=== PATIENT | female | born 1965 | race Caucasian/White ===

== ENCOUNTER 2016-12-31 02:58 | Emergency (ER) | payer OTHER ==
[2016-12-31] MEDS ORDERED: PHENAZOPYRIDINE HCL 200 MG TABLET PO ONE ×2 (03:18→03:21)
[2016-12-31] MEDS ORDERED: LEVOFLOXACIN 250 MG TABLET PO ONE (04:04)
[2016-12-31] MEDS ORDERED: PHARMACY KEY 1 EACH EACH MC ONE (04:05)
[2016-12-31] MEDS ORDERED: LEVOFLOXACIN 500 MG TABLET PO ONE (04:09)
[2016-12-31] MEDS ORDERED: KETOROLAC TROMETHAMINE 60 MG/2 ML VIAL IM ONE (04:09)
[2016-12-31] MEDS ORDERED: KETOROLAC TROMETHAMINE 60 MG/2 ML VIAL ONE (04:09)
[2016-12-31] MEDS ORDERED: HYDROcodone /APAP 5/325 1 EACH TABLET PO ONE (04:10)
--- NOTE | 2016-12-31 04:13 | ED Physician Documentation ---
Female Urogenital Problems - HISTORIAN Historian: patient - HPI Stated Complaint: Painful urination/LBP Chief Complaint: Female Urogenital Problems Onset: days ago (7) Location of Pain: flank pain, other (groin pain) Further Comments: yes (51 yo female presents with dysuria, urinary urgency, urinary frequency, and pain from genital region around to left flank for 1 week. Originally thought it was due to her arthritis in her hip. Has [place] at home but has not taken any for this pain, despite being in 10/10 pain. No fever /chills. No prior history of nephrolithiasis.) - Associated Symptoms Urinary Symptoms: frequent urination, discomfort w/ urination, burning w/ urination, urgency w/ urination, pain w/ urination - ROS CONST: none - PAST HX Past History: other (osteoarthritis) Allergies/Adverse Reactions: Allergies Allergy/AdvReac Type Severity Reaction Status Date / Time cephalexin monohydrate Allergy Verified 12/31/16 03:33 [From Keflex] Penicillins Allergy Verified 12/31/16 03:33 Home Medications: Ambulatory Orders Medication Instructions Recorded Hydrocodone/Acetaminophen 1 each PO Q6 PRN 02/04/16 [Hydrocodon-Acetaminophen 5-325] Ipratropium/Albuterol Sulfate 3 ml IH PRN PRN 12/31/16 [Duoneb] Levofloxacin [Levaquin] 750 mg PO DAILY #6 tablet 12/31/16 Phenazopyridine HCl [Pyridium] 200 mg PO TID #6 tablet 12/31/16 Tramadol HCl [Ultram] 50 mg PO PRN PRN 12/31/16 - SOCIAL HX Smoking History: non-smoker - FAMILY HX Family History: none - VITAL SIGNS Vital Signs: Vital Signs Temp Pulse Resp BP Pulse Ox 97.5 F L 83 24 127/69 100 12/31/16 02:58 12/31/16 02:58 12/31/16 02:58 12/31/16 02:58 12/31/16 02:58 - REVIEWED ASSESSMENTS Nursing Assessment Reviewed: Yes Vitals Reviewed: Yes Progress - Progress Progress: Pt's symptoms clinically indicate UTI/early pyelonephritis; no prior history of nephrolithiasis. Pt is Afebrile, vitals WNL, meets criteria for outpatient antibiotic therapy; will start Levaquin 750mg daily. Pt says she has an appointment with her PCP in 2 days for good follow up. ED Results Lab/Radiology - Radiology Radiology Impressions: CT of the abdomen and pelvis without contrast Clinical history: Low back pain. Hematuria. Pain began on 12/27/2016. Technique: CT of the abdomen and pelvis is performed without oral or intravenous administration of contrast. Sagittal and coronal reconstructions are performed by the technologist. Findings: The visualized lung bases are clear. The liver and spleen demonstrate normal attenuation without focal defect. Small gallstone is present in the gallbladder. There is no pancreatic abnormality. Right adrenal gland is unremarkable. Left adrenal gland is enlarged but hypodense consistent with lipid rich adenoma. Adrenal measures 2.4 cm in size. Right kidney and collecting system are unremarkable. There is left hydronephrosis and hydroureter with minimal lisbeth-ureteral stranding. There is no definite ureteral calculus. The findings suggest recently passed stone or pyelonephritis. Vascular calcification is present in the abdominal aorta without evidence of aneurysm. The appendix is visualized and is within normal limits. Impression: 1. Mild left hydronephrosis and hydroureter with left lisbeth-ureteral stranding consistent with pyelonephritis or recently passed stone. 2. Vascular calcification. 3. Left adrenal adenoma. 4. Cholelithiasis. Electronically signed on Dec 31, 2016 3:48:08 AM CEO & BOARD DIRECTOR by: Blayne Ellis - Orders Orders: ED Orders Category Date Time Status CT ABD & PELVIS W/O CON Stat Exams 12/31/16 Taken UA W/MICRO IF INDICATED Routine Lab 12/31/16 04:03 Ordered HYDROcodone /APAP 5/325 [Day[place] 5/325] Med 12/31/16 04:10 Once 2 each PO TAKE HOME ONE Ketorolac Tromethamine [Toradol] Med 12/31/16 04:09 Discontinued 60 mg .ROUTE .STK-MED ONE Ketorolac Tromethamine [Toradol] Med 12/31/16 04:09 Once 60 mg IM NOW ONE Levofloxacin [Levaquin] Med 12/31/16 04:09 Discontinued 1,000 mg PO .STK-MED ONE Levofloxacin [Levaquin] Med 12/31/16 04:04 Discontinued 750 mg PO NOW ONE [facility] 12/31/16 04:05 Discontinued 1 each MC .STK-MED ONE Phenazopyridine HCl [Pyridium] Med 12/31/16 03:21 Discontinued 200 mg PO .STK-MED ONE Phenazopyridine HCl [Pyridium] Med 12/31/16 03:18 Discontinued 200 mg PO NOW ONE Female Urogenital Problems - EXAM General Appearance: alert, mild distress EENT: pharynx normal, LES, TM's nml Neck: nml inspection Respiratory: no resp. distress, breath sounds nml Abdomen: tenderness (suprapubic tenderness, soft) Back: CVA tenderness (Left) Skin: color nml, no rash Neuro: oriented X3 Discharge Clincal Impression: UTI (urinary tract infection) Qualifiers: Urinary tract infection type: acute pyelonephritis Qualified Code(s): N10 - Acute pyelonephritis Additional Instructions: Take Levaquin 750mg daily for 7 days Take [place] as prescribed Take Pyridium 200mg three times daily for 2 days; it will turn your color a highlighter bright color Follow up with PCP in 2 days as scheduled Home Medications: Ambulatory Orders Hydrocodone/Acetaminophen [Hydrocodon-Acetaminophen 5-325] 1 each PO Q6 PRN Ipratropium/Albuterol Sulfate [Duoneb] 3 ml IH PRN PRN 12/31/16 Levofloxacin [Levaquin] 750 mg PO DAILY #6 tablet 12/31/16 Phenazopyridine HCl [Pyridium] 200 mg PO TID #6 tablet 12/31/16 Tramadol HCl [Ultram] 50 mg PO PRN PRN 12/31/16 Condition: Good Disposition: 01 HOME, SELF-CARE Decision to Admit: NO Decision Time: 04:16
[2016-12-31 04:43] VITALS: BP 128/62
[2016-12-31 05:56] LABS: APPEARANCE,URINE CLOUDY (CLEAR); COLOR,URINE YELLOW (YELLOW); OCCULT BLOOD,URINE 3+ (NEGATIVE); UROBILINOGEN URINE 0.2 Eu (0.2-1.0)
--- NOTE | 2016-12-31 06:45 | Diagnostic Imaging Report ---
JUDY CAVANAUGH~ [facility] [address] [facility] [address] [place], [place]. [address] ~ ~ ~ ~ Report Submission Date: Dec 31, 2016 3:48:08 AM REAL ESTATE SALES MANAGER Patient ~ Study Name: ARNULFO RAMOS ~ Date: Dec 31, 2016 3:33:58 AM REAL ESTATE SALES MANAGER ~ Modality Type: CT\SR Gender: F ~ Description: CT ABD & PELVIS W/O CO : 65 ~ Institution: [facility] Physician: JUDY CAVANAUGH ~ ~ ~ ~ CT of the abdomen and pelvis without contrast Clinical history: ~Low back pain. ~Hematuria. ~Pain began on 12/27/2016. Technique: ~CT of the abdomen and pelvis is performed without oral or intravenous administration of contrast. ~Sagittal and coronal reconstructions are performed by the technologist. Findings: ~The visualized lung bases are clear. ~The liver and spleen demonstrate normal attenuation without focal defect. ~Small gallstone is present in the gallbladder. ~There is no pancreatic abnormality. ~Right adrenal gland is unremarkable. ~Left adrenal gland is enlarged but hypodense consistent with lipid rich adenoma. ~Adrenal measures 2.4 cm in size. ~Right kidney and collecting system are unremarkable. ~There is left hydronephrosis and hydroureter with minimal lisbeth-ureteral stranding. ~There is no definite ureteral calculus. ~The findings suggest recently passed stone or pyelonephritis. ~Vascular calcification is present in the abdominal aorta without evidence of aneurysm. ~The appendix is visualized and is within normal limits. Impression: 1. ~Mild left hydronephrosis and hydroureter with left lisbeth-ureteral stranding consistent with pyelonephritis or recently passed stone. 2. ~Vascular calcification. 3. ~Left adrenal adenoma. 4. ~Cholelithiasis. ~ Electronically signed on Dec 31, 2016 3:48:08 AM REAL ESTATE SALES MANAGER by: Blayne DELEON
== END 2016-12-31 04:25 | disposition home or self-care (01) ==
LOC: ED 02:58
DX: N39.0 Urinary tract infection, site not specified (principal)
CPT/HCPCS: 74176; 81002; 87086; 87186; J1885; 96372; 99283; 99284

== ENCOUNTER 2017-01-03 23:54 | Emergency (ER) | payer OTHER ==
[2017-01-04] MEDS ORDERED: 0.9 % SODIUM CHLORIDE 1,000 ML IV ONE (00:08)
[2017-01-04] MEDS ORDERED: ONDANSETRON HCL/PF 4 MG/ 2ML VIAL IVP ONE (00:08)
[2017-01-04] MEDS ORDERED: KETOROLAC TROMETHAMINE 30 MG/1ML VIAL IVP ONE (00:08)
[2017-01-04 00:50] LABS: BASOPHILS % 0.4 (0.0-1.5); EOSINOPHILS % 2.6 % (0.0-6.8); LYMPHOCYTES # 0.5 # k/uL (0.6-4.0); MEAN CORPUSCULAR HEMOGLOBIN 31.5 pg (28.0-34.0); MONOCYTES # 0.4 # k/uL (0.0-0.9); MONOCYTES % 6.2 % (0.0-11.0); NEUTROPHILS # 4.9 # k/uL (1.4-7.7)
[2017-01-04 01:04] LABS: eGFR (African) > 60; eGFR (Non-African) > 60
--- NOTE | 2017-01-04 01:30 | ED Physician Documentation ---
General Adult - HISTORIAN Historian: patient - HPI Stated Complaint: fever, left flank pain, headache Chief Complaint: General Adult Further Comments: yes (51 year old female patient presents with complaint of fever, nausea and vomiting with taking levaquin, Left shoulder pain and generalized abdominal pain. Patient was seen on 12/31/13 in ER and diagnosis with UTI and passed renal calculi. Patient states she started vomiting on 01/01 after taking the levaquin po. Patient c/o left lateral neck and left shoulder pain. States she fell Thursday night.) - ROS CONST: recent illness EYES/ENT: none CVS/RESP: cough. denies: chest pain, shortness of breath GI/: abdominal pain (improved, LL quad), vomiting, nausea. denies: problems urinating MS/SKIN/LYMPH: neck pain, joint pain (left shoulder) - PAST HX Past History: other (OA) Allergies/Adverse Reactions: Allergies Allergy/AdvReac Type Severity Reaction Status Date / Time cephalexin monohydrate Allergy Verified 01/04/17 00:26 [From Keflex] Penicillins Allergy Verified 01/04/17 00:26 Home Medications: Ambulatory Orders Medication Instructions Recorded Hydrocodone/Acetaminophen 1 each PO Q6 PRN 02/04/16 [Hydrocodon-Acetaminophen 5-325] Levofloxacin [Levaquin] 750 mg PO DAILY #6 tablet 12/31/16 - SOCIAL HX Smoking History: cigarettes (down to 2/day, on chantix) - FAMILY HX Family History: No - VITAL SIGNS Vital Signs: Vital Signs Temp Pulse Resp BP Pulse Ox 101.7 F H 106 H 18 108/53 94 01/04/17 00:05 01/04/17 00:05 01/04/17 00:05 01/04/17 00:05 01/04/17 00:05 - REVIEWED ASSESSMENTS Nursing Assessment Reviewed: Yes Vitals Reviewed: Yes Progress - Progress Progress: Patient continues to c/o neck pain. ED Results Lab/Radiology - Lab Results Lab Results: Lab Results 01/04/17 01/04/17 00:40 00:40 WBC 6.00 K/ul K/ul (4.00-12.00) RBC 4.19 M/ul M/ul (3.90-5.20) Hgb 13.2 g/dL g/dL (12.0-16.0) Hct 38.2 % % (34.5-46.5) MCV 91.1 fl fl (80.0-100.0) MCH 31.5 pg pg (28.0-34.0) MCHC 34.6 g/dL g/dL (30.0-36.0) RDW 12.6 % % (11.3-14.3) Plt Count 216 K/mm3 K/mm3 (130-400) Neut % (Auto) 82.0 % H % (39.0-79.0) Lymph % (Auto) 7.7 % L % (16.0-50.0) Warrick % (Auto) 6.2 % % (0.0-11.0) Eos % (Auto) 2.6 % % (0.0-6.8) Baso % (Auto) 0.4 (0.0-1.5) Neut # 4.9 # k/uL # k/uL (1.4-7.7) Lymph # 0.5 # k/uL L # k/uL (0.6-4.0) Warrick # 0.4 # k/uL # k/uL (0.0-0.9) Eos # 0.2 # k/uL # k/uL (0.0-0.6) Baso # 0.0 # k/uL # k/uL (0.0-0.5) Reactive Lymphs % 1.2 % % (0.0-5.0) Reactive Lymphs # 0.1 # k/uL # k/uL (0.0-0.8) Sodium 138 mmol/L mmol/L (136-145) Potassium 3.8 mmol/L mmol/L (3.5-5.0) Chloride 100 mmol/L mmol/L (98-110) Carbon Dioxide 26 mmol/L mmol/L (20-32) BUN 12 mg/dL mg/dL (10-26) Creatinine 0.6 mg/dL mg/dL (0.4-1.5) Est GFR ( Amer) > 60 (60 - ) Est GFR (Non-Af Amer) > 60 (60 - ) Glucose 155 mg/dL H mg/dL (70-99) Calcium 9.5 mg/dL mg/dL (8.5-10.5) Total Bilirubin 0.3 mg/dL mg/dL (0.2-1.2) AST 30 U/L U/L (0-41) ALT 31 U/L U/L (0-45) Alkaline Phosphatase 100 U/L U/L (46-116) Total Protein 6.6 g/dL g/dL (6.0-8.5) Albumin 4.4 g/dL g/dL (3.0-5.5) - Radiology Radiology Impressions: Left shoulder left shoulder - three views Clinical history: Fall last week. Pain and decreased range of motion. Findings: Examination left shoulder multiple views demonstrates degenerative changes with slight narrowing of the acromioclavicular joint. The glenohumeral relationship is anatomic. There is no evident fracture and no lytic or blastic lesion. Impression: 1. Mild degenerative changes in the acromioclavicular joint. Chest - two views Clinical history: Chest tightness and productive cough. Findings: Examination of the chest in PA and lateral views with comparison to examination of 11/21/2016 demonstrates the lungs to be clear. The cardiovascular and mediastinal silhouettes are stable. The bony thorax is intact. Impression: 1. No significant change. 2. No active disease. Electronically signed on Jan 04, 2017 2:01:25 AM OUTSIDE SALESMAN by: Blayne Ellis - Orders Orders: ED Orders Category Date Time Status Place Saline Lock/IV NOW Care 01/04/17 00:08 Active CHEST P.A.&LAT 2 VIEWS [RAD] Stat Exams 01/04/[address] ABD W & W/O CONTRAST Stat Exams 01/04/17 Stop Req SHOULDER 2 VIEWS OR MORE [RAD] Stat Exams 01/04/17 Ordered CBC/PLATELET/DIFF Stat Lab 01/04/17 00:40 Completed CMP Stat Lab 01/04/17 00:40 Completed INFLUENZA A&B Stat Lab 01/04/17 Uncollected UA W/MICRO IF INDICATED Stat Lab 01/04/17 00:08 Ordered 0.9 % Sodium Chloride [Normal Saline] 1,000 ml Med 01/04/17 00:08 Discontinued IV NOW Ketorolac Tromethamine [Toradol] Med 01/04/17 00:08 Discontinued 30 mg IVP NOW ONE Ondansetron HCl/Pf [Zofran 4 mg/2 ml] Med 01/04/17 00:08 Discontinued 4 mg IVP NOW ONE General Adult Physical Exam - PHYSICAL EXAM GENERAL APPEARANCE: moderate distress EENT: eye inspection normal, ENT inspection normal, pharynx normal, no signs of dehydration, LES, no nystagmus, TM's nml RESPIRATORY: no resp distress, chest non-tender, other (cough) CVS: reg rate & rhythm, heart sounds normal, equal pulses, no murmur, no gallop , PMI nml, no JVD, no friction rub, 24 ABDOMEN: soft, no organomegaly, normal bowel sounds, no abdominal bruit, no distension, tenderness (LLQ, ) BACK: normal inspection, no CVA tenderness SKIN: normal color, warm/dry, NR, INT, PAL, DR EXTREMITIES: non-tender, no evidence of injury, no edema, tenderness (left shoulder, decreased ROM - unable to abduct due to pain, pain with forward flexion decreased and extension) NEURO: oriented X3, CN's nml as tested, motor nml, sensation nml, mood/affect nml Discharge Clincal Impression: Cervical strain, acute Qualifiers: Encounter type: initial encounter Qualified Code(s): S16.1XXA - Strain of muscle, fascia and tendon at neck level, initial encounter Shoulder pain, acute Qualifiers: Laterality: left Qualified Code(s): M25.512 - Pain in left shoulder Nausea & vomiting Qualifiers: Vomiting type: unspecified Vomiting Intractability: non-intractable Qualified Code(s): R11.2 - Nausea with vomiting, unspecified Referrals: Yudy Disla, PRN [Primary Care Provider] - 2 Days Additional Instructions: Stop the levaquin supervisor mirror fabrication your prescriptions and start them tomorrow. Follow up with your doctor in 2-3 days Clear liquid and advance diet as tolerated. Home Medications: Ambulatory Orders Hydrocodone/Acetaminophen [Hydrocodon-Acetaminophen 5-325] 1 each PO Q6 PRN Levofloxacin [Levaquin] 750 mg PO DAILY #6 tablet 12/31/16 Condition: Stable Disposition: 01 HOME, SELF-CARE Decision to Admit: NO Decision Time: 02:14
[2017-01-04] MEDS ORDERED: DIAZEPAM 5 MG/ML DISP.SYRIN IM ONE (01:42)
[2017-01-04 06:45] VITALS: BP 93/47
[2017-01-04 07:06] LABS: APPEARANCE,URINE CLEAR (CLEAR); COLOR,URINE YELLOW (YELLOW); OCCULT BLOOD,URINE 2+ (NEGATIVE); UROBILINOGEN URINE 0.2 Eu (0.2-1.0)
--- NOTE | 2017-01-04 07:49 | Diagnostic Imaging Report ---
RONNIE LEE (TYRE FINISHER AND EXAMINER) - ER~ [facility] [address] [address] ~ ~ ~ ~ Report Submission Date: Jan 04, 2017 2:01:25 AM DISCOVERY MANAGER Patient ~ Study Name: ARNULFO RAMOS ~ Date: Jan 04, 2017 1:41:26 AM DISCOVERY MANAGER ~ Modality Type: CR Gender: F ~ Description: CHEST : 65 ~ Institution: [facility] Physician: RONNIE LEE (TYRE FINISHER AND EXAMINER) - ER ~ ~ ~ ~ Chest - two views Clinical history: ~Chest tightness and productive cough. Findings: ~Examination of the chest in PA and lateral views with comparison to examination of 11/21/2016 demonstrates the lungs to be clear. ~The cardiovascular and mediastinal silhouettes are stable. ~The bony thorax is intact. Impression: 1. ~No significant change. 2. ~No active disease. ~ Electronically signed on Jan 04, 2017 2:01:25 AM DISCOVERY MANAGER by: Blayne DELEON
--- NOTE | 2017-01-04 07:52 | Diagnostic Imaging Report ---
RONNIE LEE (GREGORIA) - ER~ [facility] [address] [address] ~ ~ ~ ~ Report Submission Date: Jan 04, 2017 2:08:16 AM SENIOR DATA QUALITY ANALYST Patient ~ Study Name: ARNULFO RAMOS ~ Date: Jan 04, 2017 1:49:18 AM SENIOR DATA QUALITY ANALYST ~ Modality Type: CR Gender: F ~ Description: SHOULDER : 65 ~ Institution: [facility] Physician: RONNIE LEE) - ER ~ ~ ~ ~ Left shoulder left shoulder - three views Clinical history: ~Fall last week. ~Pain and decreased range of motion. Findings: ~Examination left shoulder multiple views demonstrates degenerative changes with slight narrowing of the acromioclavicular joint. ~The glenohumeral relationship is anatomic. ~There is no evident fracture and no lytic or blastic lesion. Impression: ~ 1. ~Mild degenerative changes in the acromioclavicular joint. ~ Electronically signed on Jan 04, 2017 2:08:16 AM SENIOR DATA QUALITY ANALYST by: Blayne EDLEON
== END 2017-01-04 02:20 | disposition home or self-care (01) ==
LOC: ED 23:54
DX: S16.1XXA Strain of muscle, fascia and tendon at neck level, initial encounter (principal); M25.512 Pain in left shoulder; R11.2 Nausea with vomiting, unspecified
CPT/HCPCS: 71020; 73030; 80053; 81002; 85025; 87400; J1885; J2405; J3360; J7030; 96361; 96374; 96375; 99283; 99284; S1016

== ENCOUNTER 2017-03-23 22:09 | Emergency (ER) | payer OTHER ==
[2017-03-23 22:27] VITALS: BP 123/69
--- NOTE | 2017-03-23 22:43 | ED Physician Documentation ---
Skin Rash - HISTORIAN Historian: patient, spouse - HPI Stated Complaint: Rt eye orbital tissue swelling/redness and swelling to Rt shoulder Chief Complaint: Skin Rash Additional Information: itchy rash around R eye, with edema, painful erythema skin over R shoulder, after poking and squeezing a pimple last night. Onset: days ago Timing: still present Duration: worse Location: facial, RUE Quality: itchy, painful Identified Cause?: No Context: Medication Exposure: none Context: Food Exposure: none Further Comments: no - ROS CONST: none CVS/RESP: none EYES/ENT: eye itching GI/: none MS/SKIN/LYMPH: none NEURO/PSYCH: none - PAST HX Past History: none Other History: none Surgeries/Procedures: No Allergies/Adverse Reactions: Allergies Allergy/AdvReac Type Severity Reaction Status Date / Time cephalexin monohydrate Allergy Verified 03/23/17 22:27 [From Keflex] Penicillins Allergy Verified 03/23/17 22:27 Home Medications: Ambulatory Orders Medication Instructions Recorded Hydrocodone/Acetaminophen 1 each PO Q6 PRN 02/04/16 [Hydrocodon-Acetaminophen 5-325] Tramadol HCl [Ultram] 50 mg PO PRN PRN 03/23/17 - SOCIAL HX Smoking History: cigarettes Alcohol Use: none Drug Use: none - FAMILY HX Family History: none - VITAL SIGNS Vital Signs: Vital Signs Temp Pulse Resp BP Pulse Ox 80 16 123/69 97 03/23/17 22:09 03/23/17 22:09 03/23/17 22:09 03/23/17 22:09 - REVIEWED ASSESSMENTS Nursing Assessment Reviewed: Yes Vitals Reviewed: Yes ED Results Lab/Radiology - Orders Orders: ED Orders Category Date Time Status Clindamycin HCl [Cleocin] Med 03/23/17 22:40 Once 300 mg PO NOW ONE methylPREDNISolone SOD SUCC [Solu-MEDROL] Med 03/23/17 22:40 Once 125 mg IM NOW ONE Skin Rash Physical Exam - EXAM General Appearance: no acute distress Skin: warm,dry, other (R periorbital edema and redness, with pruritis. R shoulder area skin erythema 5cm with central ulcer, ttp) Location: face Character: urticarial Symptoms: warmth, tenderness Extremities: non-tender EENT: eyes nml inspection Neck: trachea midline Respiratory: no resp distress CVS: reg. rate & rhythm Abdomen: non-tender Neuro/Psych: oriented x3, mood/affect nml Discharge Clincal Impression: Cellulitis of shoulder Allergic conjunctivitis Qualifiers: Laterality: right Qualified Code(s): H10.11 - Acute atopic conjunctivitis, right eye Home Medications: Ambulatory Orders Hydrocodone/Acetaminophen [Hydrocodon-Acetaminophen 5-325] 1 each PO Q6 PRN Tramadol HCl [Ultram] 50 mg PO PRN PRN 03/23/17 Condition: Good Disposition: 01 HOME, SELF-CARE Decision to Admit: NO Date of Decison to Admit: 03/23/17 Decision Time: 22:51
[2017-03-23] MEDS: CLINDAMYCIN HCL 150 MG CAPSULE PO ONE (22:58)
[2017-03-23] MEDS: methylPREDNISolone SOD SUCC 125 MG/2 ML VIAL IM ONE (22:59)
== END 2017-03-23 23:00 | disposition home or self-care (01) ==
LOC: ED 22:09
DX: H10.11 Acute atopic conjunctivitis, right eye (principal); L03.113 Cellulitis of right upper limb; F17.210 Nicotine dependence, cigarettes, uncomplicated
CPT/HCPCS: A9270; J2930; 96372; 99283

== ENCOUNTER 2017-08-03 11:20 | Outpatient (CLI) | payer OTHER ==
--- NOTE | 2017-08-03 14:57 | Diagnostic Imaging Report ---
MICHELLE KINSEY (DATA SCIENCE AND IOT MANAGER) - OP [facility] [address] [facility] [address] [address] Report Submission Date: Aug 03, 2017 11:52:21 AM CDT Patient Study Name: ARNULFO RAMOS Date: Aug 03, 2017 11:23:11 AM CDT Modality Type: CR Gender: F Description: SHOULDER : 65 Institution: [facility] Physician: MICHELLE KINSEY (DATA SCIENCE AND IOT MANAGER) - OP Examination: Plain film shoulder History: Fall Comparison exams: None provided Findings: 3 views of the shoulder demonstrate normal cortical margins. No evidence for fracture or dislocation. Early acromioclavicular joint degenerative changes. Mild widening of the humeral head/glenoid/acromial space. Impression: No acute osseous process. Mild widening of the joint space: could represent joint effusion. Electronically signed on Aug 03, 2017 11:52:21 AM CDT by: Aleks DELEON
--- NOTE | 2017-08-03 14:58 | Diagnostic Imaging Report ---
MICHELLE KINSEY (WARP STARTER) - OP [facility] [address] [facility] [address] [address] Report Submission Date: Aug 03, 2017 11:53:08 AM CDT Patient Study Name: ARNULFO RAMOS Date: Aug 03, 2017 11:27:37 AM CDT Modality Type: CR Gender: F Description: UPPER EXTREMITY : 65 Institution: [facility] Physician: MICHELLE KINSEY (WARP STARTER) - OP Examination: Plain film humerus History: Fall Comparison exams: None provided Findings: 2 views of the humerus demonstrate normal cortical margins. No fracture. No dislocation. Impression: No acute osseous abnormality. Electronically signed on Aug 03, 2017 11:53:08 AM CDT by: Aleks DELEON
--- NOTE | 2017-08-03 14:58 | Diagnostic Imaging Report ---
MICHELLE KINSEY (PRESIDENT AND CMO) - OP [facility] [address] [facility] [address] [address] Report Submission Date: Aug 03, 2017 11:49:50 AM CDT Patient Study Name: ARNULFO RAMOS Date: Aug 03, 2017 11:31:25 AM CDT Modality Type: CR Gender: F Description: UPPER EXTREMITY : 65 Institution: [facility] Physician: MICHELLE KINSEY (PRESIDENT AND CMO) - OP Examination: Plain film elbow History: Fall Comparison exams: None provided Findings: 2 views of the elbow demonstrate normal cortical margins. No fracture. No dislocation. Radial head is within normal limits. No joint effusion Impression: No acute osseous abnormality. Electronically signed on Aug 03, 2017 11:49:50 AM CDT by: Aleks DELEON
== END 2017-08-03 11:21 ==
LOC: RAD 11:20
PROVIDERS: ATTEND Nurse Practitioner Family
DX: M25.529 Pain in unspecified elbow (principal); M25.519 Pain in unspecified shoulder; M79.603 Pain in arm, unspecified; W19.XXXA Unspecified fall, initial encounter; Y93.9 Activity, unspecified; Y99.9 Unspecified external cause status
CPT/HCPCS: 73030; 73060; 73070

== ENCOUNTER 2018-03-27 15:25 | Emergency (ER) | payer OTHER ==
[2018-03-27 15:44] VITALS: BP 103/58
--- NOTE | 2018-03-27 16:05 | ED Physician Documentation ---
General Adult - HISTORIAN Historian: patient - HPI Stated Complaint: cough Chief Complaint: General Adult Onset: days ago (4) Timing: still present Severity: moderate Further Comments: yes (Pt is a 52 yo female with cough x 4 days. Pt was using bug spray and got a big dose of the spray in her face and airway when the wind changed. Pt has had cough since then. Pt has hx asthma, but had not been having problems with it in recent years. Pt is a smoker.) - ROS CONST: no problems EYES/ENT: sore throat ("from coughing") CVS/RESP: cough GI/: none MS/SKIN/LYMPH: none - PAST HX Past History: asthma, other (DM) Surgeries/Procedures: BTL, hysterectomy, other (appendectomy, tonsillectomy, ortho surg.) Allergies/Adverse Reactions: Allergies Allergy/AdvReac Type Severity Reaction Status Date / Time cephalexin monohydrate Allergy Verified 03/27/18 15:37 [From Keflex] Penicillins Allergy Verified 03/27/18 15:37 Home Medications: Ambulatory Orders Medication Instructions Recorded Metformin HCl [Glucophage] [place] [id number] 03/27/18 - SOCIAL HX Smoking History: cigarettes - FAMILY HX Family History: No - VITAL SIGNS Vital Signs: Vital Signs Temp Pulse Resp BP Pulse Ox 98.6 F 80 18 103/58 96 03/27/18 15:39 03/27/18 15:39 03/27/18 15:39 03/27/18 15:39 03/27/18 15:39 - REVIEWED ASSESSMENTS Nursing Assessment Reviewed: Yes Vitals Reviewed: Yes Progress - Progress Progress: Pulmicort HFN in ER Rx Prednisone 50 mg. Take one daily for 5 days. Rx Albuterol (90 mcg/spray) MDI. Take 2 puffs every 4 to 6 hrs as needed. Rx Z-waqas. Use as directed on package. Pt has Tessalon Dalila at home. - EKG/XRAY/CT XRAY: chest (Chronic interstitial changes. No acute pulmonary process.) ED Results Lab/Radiology - Orders Orders: ED Orders Category Date Time Status CHEST 2VIEW [RAD] Stat Exams 03/27/18 Ordered General Adult Physical Exam - PHYSICAL EXAM GENERAL APPEARANCE: mild distress EENT: pharynx normal NECK: normal inspection, supple RESPIRATORY: no resp distress, chest non-tender, breath sounds normal CVS: reg rate & rhythm, heart sounds normal ABDOMEN: soft, no organomegaly, normal bowel sounds BACK: normal inspection SKIN: warm/dry, normal color EXTREMITIES: non-tender, normal range of motion, no evidence of injury, no edema NEURO: oriented X3, motor nml, sensation nml Discharge Clincal Impression: Cough Referrals: Yudy Disla PRN [Primary Care Provider] - Condition: Good Disposition: 01 HOME, SELF-CARE Decision to Admit: NO Decision Time: 16:35
[2018-03-27] MEDS ORDERED: BUDESONIDE 0.5MG/2ML AMPUL.NEB NEB ONE (16:06)
--- NOTE | 2018-03-27 16:06 | Diagnostic Imaging Report ---
ADAN CANALES [facility] [address] [facility] [address] [place] [address]. [id number] Report Submission Date: March 27, 2018 4:02:34 PM CDT Patient Study Name: ARNULFO RAMOS Date: March 27, 2018 3:46:02 PM CDT Modality Type: DX Gender: F Description: CHEST : 65 Institution: [facility] Physician: ADAN CANALES Examination: PA and lateral chest. History: Evaluate lung perez. coughing and wheezing x 5 days (Hx) Comparison exam: None provided. Findings: PA lateral chest demonstrate a normal cardiac and mediastinal silhouette. Chronic interstitial changes. No focal infiltrate. No blunting of the costophrenic margins. Right lung base granuloma. Osseous structures are appropriate for age. Impression: Chronic interstitial changes. No acute pulmonary process. Electronically signed on March 27, 2018 4:02:34 PM CDT by: Aleks DELEON
[2018-03-27] MEDS ORDERED: BUDESONIDE 0.5MG/2ML AMPUL.NEB NEB SCH (17:00)
== END 2018-03-27 16:29 | disposition home or self-care (01) ==
LOC: ED 15:25
DX: R05 Cough (principal)
CPT/HCPCS: 71046; 94640; 99283

== ENCOUNTER 2019-02-28 12:16 | Outpatient (CLI) | payer OTHER ==
[2018-04-03 11:24] VITALS: BP 110/62
--- NOTE | 2019-02-28 13:34 | Diagnostic Imaging Report ---
BOZENA BURGOS [facility] [address] [facility] [address] [place] [address]. [id number] Report Submission Date: Feb 28, 2019 1:17:11 PM CDT Patient Study Name: ARNULFO RAMOS Date: Feb 28, 2019 12:49:12 PM CDT Modality Type: DX Gender: F Description: ANKLE 3 VIEWS OR MORE : 65 Institution: [facility] Physician: BOZENA BURGOS EXAMINATION: ANKLE 3 VIEWS OR MORE HISTORY: CHRONIC LEFT FOOT AND ANKLE PAIN. (Hx) COMPARISON: None FINDINGS: The osseous structures are intact and well aligned without acute fracture or dislocation. The joint spaces are preserved. Bone density is normal. No soft tissue swelling is seen. IMPRESSION: No acute fracture, dislocation, or significant degenerative change identified. Electronically signed on Feb 28, 2019 1:17:11 PM CDT by: Marcell DELEON
--- NOTE | 2019-02-28 13:35 | Diagnostic Imaging Report ---
BOZENA BURGOS [facility] [address] [facility] [address] [id number] Report Submission Date: Feb 28, 2019 1:17:44 PM CDT Patient Study Name: ARNULFO RAMOS Date: Feb 28, 2019 12:49:12 PM CDT Modality Type: DX Gender: F Description: FOOT 3 VIEWS OR MORE : 65 Institution: [facility] Physician: BOZENA BURGOS EXAMINATION: FOOT 3 VIEWS OR MORE HISTORY: CHRONIC LEFT FOOT AND ANKLE PAIN. SPECIAL VIEWS PER DR BURGOS. (Hx) COMPARISON: None FINDINGS: The osseous structures are intact and well aligned without acute fracture or dislocation. The joint spaces are preserved. Bone density is normal. No soft tissue swelling is seen. There is a small posterior calcaneal spur. IMPRESSION: Small posterior calcaneal spur without acute fracture, dislocation, or significant degenerative change identified. Electronically signed on Feb 28, 2019 1:17:44 PM CDT by: Marcell DELEON
== END 2019-02-28 12:20 ==
LOC: LAB 12:16
PROVIDERS: ATTEND Podiatrist Foot & Ankle Surgery
DX: M77.32 Calcaneal spur, left foot (principal); M25.572 Pain in left ankle and joints of left foot; B35.1 Tinea unguium
CPT/HCPCS: 36415; 73610; 73630; 80076

== ENCOUNTER 2019-04-07 13:42 | Outpatient (CLI) | payer OTHER ==
[2018-04-03 11:24] VITALS: BP 110/62
== END 2019-04-07 13:43 ==
LOC: LAB 13:42
PROVIDERS: ATTEND Podiatrist Foot & Ankle Surgery
DX: B35.1 Tinea unguium (principal)
CPT/HCPCS: 36415; 80076